=== PATIENT | female | born 1990 | race Caucasian/White ===

== ENCOUNTER → 2018-10-22 | Day surgery (SDC) | payer OTHER ==
[~2018-10-22] MED LIST: BUPIVACAINE 0.75% 10 ML SDV ONE; LIDOCAINE 1% 300 MG/30 ML SDV ONE; LIDOCAINE 1% 300 MG/30 ML SDV SC ONE; MIDAZOLAM 2 MG/2 ML VIAL ONE; fentaNYL 100 MCG/2 ML INJ ONE
--- NOTE | 2018-10-22 14:59 | PDPROPOC ---
Sedation Plan of Care Sedation Plan of Care: mental status noted, patient educated of risks, benefits , alternatives, patient can tolerate sedation ASA Classification: ASA 2 Planned drugs: fentanyl, midazolam Mallampati Score: Class 1 Mallampati Reference Image: Patient passed 3-3-2 rule?: Yes
--- NOTE | 2018-10-22 15:03 | PDGENHP ---
History & Physical Chief Complaint: Palpitations History of Present Illness: 28 year old female with hx of palpitations associated with lightheadedness. Evidence of atrial tachycardia on LINQ. Current LINQ at end of life. Plan for removal and placement of new LINQ Pertinent Past, Social, Family History: pmh: Depression, palpitations, atrila tach. Soc Hx: works as [employer]. Fam hx: HTN Relevant Physical Exam: Awake, alert appropriate Cardiorespiratory Assessment: Normal exam
--- NOTE | 2018-10-22 16:19 | CPIP ---
DATE OF PROCEDURE: 10/22/2018 PROCEDURE PERFORMED: 1. Medtronic implantable loop recorder removal. 2. Medtronic implantable loop recorder implantation. HISTORY OF PRESENT ILLNESS: This is a pleasant 28-year-old female with a history of palpitations and symptomatic brief runs of atrial tachycardia, who is being monitored with an implantable loop record er. She has continued to have symptoms with no definitive arrhythmias consistent with her symptoms o f dizziness. Her current Medtronic LINQ device is at end of life and given the fact there that there has been no clear link to her symptoms, coupled with arrhythmias, decision was made for reimplantati on of a 2nd Medtronic implantable loop recorder. PROCEDURE: After consents were obtained for both sedation with fentanyl and Versed as well as consen t for a Medtronic implantable loop recorder removal and incision, the patient was brought to the [facility] catheterization lab where she was prepped and draped in a sterile fashion. Using 1% lidocaine th e LINQ site was anesthetized. Using scalpel blade, skin was incised down to the level of device. Fo rceps were used to grab the device and remove without complications. Hemostasis was achieved. The pocket was flushed with sterile saline. Lidocaine was administered in the tract for new device. A 2nd loop recorder was placed with Medtronic implantable loop recorder without complication. Hemos tasis was achieved. Steri-Strips were deployed. Tegaderm and gauze dressing were applied. PLAN: Patient will be transferred back to the CV where device was monitored. She is scheduled for followup in 1 week for wound and device check. CONCLUSION: 1. Successful Medtronic LINQ removal. 2. Successful Medtronic implantation. 3. Steri-Strips and hemostasis achieved. 4. The patient will be seen as an outpatient next week for wound and device check. /[id number]/MODL
== END | disposition home or self-care (01) ==
LOC: FCATH 12:52
PROVIDERS: ATTEND Internal Medicine Cardiovascular Disease
DX: Z45.09 Encounter for adjustment and management of other cardiac device (principal); I47.1 Supraventricular tachycardia; R42 Dizziness and giddiness
CPT/HCPCS: C1764; J2250; J3010